=== PATIENT | male | born 1950 | race Two or more races ===

== ENCOUNTER 2025-02-22 19:40 | Inpatient (IN) | payer MEDICARE, OTHER ==
[~2025-02-22] VITALS: Ht 165.1 cm; Wt 63.0 kg
[2025-02-22] MEDS ORDERED: DEXTROSE 50%-WATER 50 ML DISP.SYRIN ONE (20:02)
[2025-02-22] MEDS: DEXTROSE 50%-WATER 50 ML DISP.SYRIN IVP ONE (20:05)
[2025-02-22 20:35] LABS: PLATELET COUNT (AUTO) 353 K/uL (150-450); RED BLOOD CELL COUNT(AUTO) 4.07 MIL/uL (4.5-6.0); RED CELL DISTRIBUTION WIDTH 14.6 % (11.5-15.0); WHITE BLOOD COUNT (AUTO) 7.2 K/uL (4.3-11.0)
[2025-02-22 20:43] LABS: CALCIUM, SERUM 9.8 mg/dL (8.5-10.1); CREATININE 1.8 mg/dL (0.6-1.3); SODIUM SERUM 143 mmol/L (136-145); UREA NITROGEN, BLOOD 31 mg/dL (7-18)
[2025-02-22 20:49] LABS: ASPARTATE AMINOTRANSFERASE 22 U/L (15-37); TOTAL PROTEIN, SERUM 7.3 g/dL (6.4-8.2)
[2025-02-22 21:29] LABS: APPEARANCE,URINE CLEAR (CLEAR); BLOOD, URINE 3+ Ery/uL (NEGATIVE); LEUKOCYTE ESTERASE ,URINE NEGATIVE (NEGATIVE); NITRITE, URINE NEGATIVE (NEGATIVE); UGLUCOSE TRACE mg/dL (NEGATIVE)
[2025-02-22 21:40] LABS: ADD URINE CULTURE NO
[2025-02-22 21:41] LABS: SQUAMOUS EPITHELIAL CELL,UR Moderate /HPF (None Seen)
[2025-02-22] MEDS ORDERED: MAG HYDROX/AL HYDROX/SIMETH 30 ML UDC ONE (21:41)
[2025-02-22] MEDS ORDERED: FAMOTIDINE/PF INJ 20 MG/2 ML VIAL IV ONE (21:41)
[2025-02-22] MEDS ORDERED: OCTREOTIDE 50 MCG/ML AMPUL ONE (21:42)
[2025-02-22] MEDS: FAMOTIDINE/PF INJ 20 MG/2 ML VIAL IV ONE (21:50)
[2025-02-22] MEDS: OCTREOTIDE 50 MCG/ML AMPUL SQ ONE (21:52)
[2025-02-22] MEDS: MAG HYDROX/AL HYDROX/SIMETH 30 ML UDC PO ONE (21:53)
[2025-02-22] MEDS ORDERED: ONDANSETRON HCL/PF 4 MG/2 ML VIAL ONE (22:09)
[2025-02-22] MEDS ORDERED: LEVOFLOXACIN 500 MG /D5W 100ML 100 ML IV ONE (22:14)
[2025-02-22] MEDS: ONDANSETRON HCL/PF 4 MG/2 ML VIAL IV ONE (22:14)
[2025-02-22] MEDS: LEVOFLOXACIN 500 MG /D5W 100ML 500 MG/100 ML PIGGYBACK IV ONE (22:20)
[2025-02-22] MEDS ORDERED: MAG HYDROX/AL HYDROX/SIMETH 30 ML UDC PO PRN (22:30)
[2025-02-22] MEDS ORDERED: MAGNESIUM HYDROXIDE 30 ML UDC PO PRN (22:30)
[2025-02-22] MEDS ORDERED: INSULIN REGULAR, HUMAN 100 UNIT/ML 3 ML VIAL SQ PRN (22:30)
[2025-02-22] MEDS ORDERED: ONDANSETRON HCL/PF 4 MG/2 ML VIAL IVP PRN (22:30)
[2025-02-22] MEDS: BLOOD SUGAR DIAGNOSTIC 1 EACH STRIP IN SCH (22:34)
[2025-02-22] MEDS: DEXTROSE 50%-WATER 50 ML DISP.SYRIN IV PRN (22:35)
[2025-02-22 23:30] VITALS: BP 166/64; TEMP 97.5; O2SAT 97
[2025-02-23 00:47] VITALS: BP 166/64; TEMP 97.5; O2SAT 97
[2025-02-23] MEDS: IV D5/0.45 NACL 1,000 ML IV PRN (02:09)
[2025-02-23] MEDS: ACETAMINOPHEN 325 MG TABLET PO PRN (03:53)
[2025-02-23 07:00] LABS: PLATELET COUNT (AUTO) 296 K/uL (150-450); RED BLOOD CELL COUNT(AUTO) 3.62 MIL/uL (4.5-6.0); RED CELL DISTRIBUTION WIDTH 14.5 % (11.5-15.0); WHITE BLOOD COUNT (AUTO) 6.4 K/uL (4.3-11.0)
[2025-02-23 07:39] LABS: CALCIUM, SERUM 9.4 mg/dL (8.5-10.1); CREATININE 1.9 mg/dL (0.6-1.3); NT-PRO BNP 746.0 pg/mL (0-125); PHOSPHORUS 2.8 mg/dL (2.5-4.9); SODIUM SERUM 142.0 mmol/L (136-145); UREA NITROGEN, BLOOD 28.0 mg/dL (7-18)
[2025-02-23] MEDS ORDERED: ROSU40TA23 PO (08:08)
[2025-02-23] MEDS ORDERED: TEST75GE10 TP (08:08)
[2025-02-23] MEDS ORDERED: LISI20TA30 PO (08:08)
[2025-02-23] MEDS ORDERED: GABA-532 PO (08:08)
[2025-02-23] MEDS ORDERED: METF-440 PO (08:08)
[2025-02-23] MEDS ORDERED: AMLO5TAB4 PO (08:08)
[2025-02-23] MEDS ORDERED: OMEP20CA15 PO (08:08)
[2025-02-23] MEDS ORDERED: ROSU40TA PO (08:08)
== END 2025-02-23 08:30 | disposition left against medical advice (07) | DRG 640 ==
LOC: ER 19:41 → MED 22:48
PROVIDERS: ADMIT Nurse Practitioner Family; ATTEND Nurse Practitioner Family
DX: E86.0 Dehydration (principal); N17.0 Acute kidney failure with tubular necrosis; E11.649 Type 2 diabetes mellitus with hypoglycemia without coma; I11.9 Hypertensive heart disease without heart failure; E78.5 Hyperlipidemia, unspecified; D64.9 Anemia, unspecified; K21.9 Gastro-esophageal reflux disease without esophagitis; Z87.820 Personal history of traumatic brain injury; Z79.84 Long term (current) use of oral hypoglycemic drugs; Z88.0 Allergy status to penicillin; Z91.199 Patient's noncompliance with other medical treatment and regimen due to unspecified reason; K29.70 Gastritis, unspecified, without bleeding
CPT/HCPCS: 36415; 71045-TC; 80048-TC; 80076-TC; 81001; 82040-TC; 82962-TC; 83735-TC; 83880; 84100-TC; 84484-TC; 85025-TC; 87040-TC; 87086-TC; A4223; G0378; J1308; J1815; J1956; J2354; J2405